=== PATIENT | female | born 1975 | race Caucasian/White ===

== ENCOUNTER → 2020-06-09 13:37 | Outpatient (CLI) | payer OTHER, SELFPAY ==
[2020-06-09 13:03] VITALS: BMI 19.8
[2020-06-09 14:49] LABS: Estradiol 184.9 pg/mL; Follicle Stimulating Hormone 1.8 mIU/mL
[2020-06-13 12:08] LABS: Testosterone, % Free 2.14 % (0.50-2.80); Testosterone, Free 0.47 ng/dL (0.10-0.85); Testosterone, Total 22 ng/dL (8-48)
== END ==
PROVIDERS: PCP Family Medicine; Referring Provider Obstetrics & Gynecology; Visit Provider Obstetrics & Gynecology
DX: N91.1 Secondary amenorrhea (principal)
CPT/HCPCS: 36415; 82627; 82670; 83001; 84402; 84403; 82626

== ENCOUNTER → 2020-06-18 | Outpatient (CLI) | payer OTHER, SELFPAY ==
[2020-06-18 07:43] VITALS: BMI 20.1
--- NOTE | 2020-06-18 08:00 | ASPS_PTH ---
PATIENT: JEFF BUCHANAN LOC: [facility] U#:[id number] AGE/SX: 44/F ROOM: RE06/18/[address]: Dr. Andrew Goddard MD : 1975 BED: DIS: 06/18/2020 SPEC #: [id number] RECD: 06/18/20 10:36 STATUS: DANIELA REAnisha #: [id number] MCKAYLA: 06/18/20 08:[address]: Andrew Goddard DEPT: CYTOLOGY RECD BY: Naina Livingston ENTERED: 06/18/20 11:14 SP TYPE: ASPIRATION OTHR DR: Dr. Virgil Browning MD Tissues: Thyroid gland, NOS Procedures: Cytology Other HEADER OPERATION: Left thyroid FNA PRE-OP DIAGNOSIS: Multiple thyroid nodules TISSUE SUBMITTED: Left thyroid slides x8 DIAGNOSIS CYTOLOGY Left thyroid nodule, FNA (smears): The specimen is nondiagnostic due to lack of adequate number of follicular cells. See comment. SJ:geovani 06/19/2020 COMMENT Correlation with clinical, radiologic findings and appropriate follow up are necessary. Case has been reviewed in consultation with Dr. Hughes who concurs with the above diagnosis. IDC:AM CYTOLOGY STUDY Slides are reviewed. CYTOLOGY GROSS Received are eight smears labeled with the patient's name and designated per the requisition as left thyroid. Submitted for staining. / geovani 06/18/2020 TC: Cannot code CPT: 14539
== END | disposition home or self-care (01) ==
LOC: LABSPEC 10:49
PROVIDERS: PCP Family Medicine; Visit Provider Surgery
DX: E04.2 Nontoxic multinodular goiter (principal)
CPT/HCPCS: 88161

== ENCOUNTER → 2020-07-23 11:17 | Outpatient (CLI) | payer OTHER, SELFPAY ==
[2020-06-09 13:03] VITALS: BMI 19.8
[2020-06-18 07:43] VITALS: BMI 20.1
--- NOTE | 2020-07-23 11:18 | US_ITS ---
STUDY: ULTRASOUND OF THE FEMALE PELVIS - COMPLETE REASON FOR EXAM: Female, 44 years old. Secondary amenorrhea LMP: 06/12/2020. Left ovarian cyst. TECHNIQUE: Transabdominal and Transvaginal TECHNICAL QUALITY: Adequate. COMPARISON: None. FINDINGS: The uterus is anteverted and is in a midline position. The uterus measures 8.1 cm x 4.8 cm x 3.9 cm. There is a Nabothian cyst of the cervix. The endometrium measures 3.4 mm in thickness, and is hyperechoic. There is no demonstrated endometrial mass. The myometrium is of heterogeneous echotexture. This is suggestive of a fibroid change of the known focal fibroid is seen. I.U.D. - The patient does not have an I.U.D. The right ovary is visualized. The right ovary measures 2.8 cm x 4.87 x 3.9 cm. There is no right ovarian cyst or ovarian mass. There is no visualized right adnexal mass or complex lesion. There is normal arterial and normal venous vascularity. The left ovary is visualized. The left ovary is enlarged and measures 8.1 cm x 4.4 cm x 3.4 cm. There are 2 adjacent cysts within the ovary. The largest measures 4.8 sign of by 3.7 cm x 3.1 cm. There is no visualized left adnexal mass or complex lesion. There is normal arterial and normal venous vascularity. There is no fluid in the cul-de-sac. The pre void volume of the bladder was 472 ml. US/Transvaginal Non- IMPRESSION: Heterogeneous appearance of the myometrium suggestive of a fibrotic changes although no focal fibroid is seen. There are 2 left ovarian cysts the larger of which measures 4.8 cm x 3.7 cm x 3.1 cm. Electronically Signed: Lalit Fritz MD at 14:44 EDT , Service support ,
--- NOTE | 2020-07-23 11:18 | US_ITS ---
STUDY: ULTRASOUND OF THE FEMALE PELVIS - COMPLETE REASON FOR EXAM: Female, 44 years old. Secondary amenorrhea LMP: 06/12/2020. Left ovarian cyst. TECHNIQUE: Transabdominal and Transvaginal TECHNICAL QUALITY: Adequate. COMPARISON: None. FINDINGS: The uterus is anteverted and is in a midline position. The uterus measures 8.1 cm x 4.8 cm x 3.9 cm. There is a Nabothian cyst of the cervix. The endometrium measures 3.4 mm in thickness, and is hyperechoic. There is no demonstrated endometrial mass. The myometrium is of heterogeneous echotexture. This is suggestive of a fibroid change of the known focal fibroid is seen. I.U.D. - The patient does not have an I.U.D. The right ovary is visualized. The right ovary measures 2.8 cm x 4.87 x 3.9 cm. There is no right ovarian cyst or ovarian mass. There is no visualized right adnexal mass or complex lesion. There is normal arterial and normal venous vascularity. The left ovary is visualized. The left ovary is enlarged and measures 8.1 cm x 4.4 cm x 3.4 cm. There are 2 adjacent cysts within the ovary. The largest measures 4.8 sign of by 3.7 cm x 3.1 cm. There is no visualized left adnexal mass or complex lesion. There is normal arterial and normal venous vascularity. There is no fluid in the cul-de-sac. The pre void volume of the bladder was 472 ml. US/Pelvic (Non ) IMPRESSION: Heterogeneous appearance of the myometrium suggestive of a fibrotic changes although no focal fibroid is seen. There are 2 left ovarian cysts the larger of which measures 4.8 cm x 3.7 cm x 3.1 cm. Electronically Signed: Lalit Fritz MD at 14:44 EDT , Service support ,
== END ==
PROVIDERS: PCP Family Medicine; Referring Provider Obstetrics & Gynecology; Visit Provider Obstetrics & Gynecology
DX: N91.1 Secondary amenorrhea (principal)
CPT/HCPCS: 76830; 76856

== ENCOUNTER 2020-07-31 08:29 | Day surgery (SDC) | payer OTHER, SELFPAY ==
[2020-06-18 07:43] VITALS: BMI 20.1
[2020-07-24 08:17] VITALS: BMI 20.2
[2020-07-31] VITALS (7 sets, daily range): BP systolic 101–126; BP diastolic 66–80; PULSE 61–82; RESP 18; TEMP 36.8–37; O2SAT 99–100; BMI 19.9
--- NOTE | 2020-07-31 09:03 | PCM.HP.BLA ---
Problem List (1) LLQ pain Status: Acute Comment: ovarian cyst large enough on fu imaging to cause pain, recommend LSO and Right salpingectomy History and Physical Date of Admission: 07/31/20 Intake Visit Reasons: THYROID NODULE Chief Complaint: multiple thyroid nodules Modeling Teacher Required: No Is patient in pain?: No Allergies aspirin Allergy (Intermediate, Verified 06/18/20 07:44) Swelling codeine Allergy (Intermediate, Verified 06/18/20 07:44) Nausea Medications lansoprazole 30 mg capsule,delayed release 30 mg PO DAILY 06/09/20 [History Confirmed 06/18/20] medroxyprogesterone 10 mg tablet 10 mg PO QDAY #10 tab 06/09/20 [Rx Confirmed 06/18/20] spironolactone 25 mg tablet 25 mg PO BID 06/09/20 [History Confirmed 06/18/20] PFSH Medical History H/O renal calculi (Acute) Hyperthyroidism (Acute) Multiple thyroid nodules (Acute) Surgical History H/O tubal ligation (Acute) History of cholecystectomy (Acute) Family History Mother Lymphoma Leukemia Grandfather Diabetes Esophageal cancer Social History (Updated 06/18/20 @ 08:[address] Andrew Goddard MD) household members: children number of children: 1 current occupational status: employed current occupation: [employer] history of recent travel: No sexually active: No Smoking Status: Never smoker alcohol intake: current alcohol intake frequency: a few times a month substance use type: does not use frequency: daily seatbelt use: always do you feel safe at home: Yes additional social history: single HPI HPI HPI: JEFF BUCHANAN, is a 44 F who presents to the office today for consultation regarding diagnosis hyperthyroidism and bilateral thyroid nodules. Patient is a healthy 44-year-old female. There is a family history however of lymphoma in her mother who from that. The patient has not noticed any activity level changes but has been having some left lower quadrant abdominal pain. She saw her primary care physician Dr. Virgil Browning and had laboratory obtained which by patient report was consistent with hyperthyroidism. The patient was then referred to financial recruiter Dr. Shelley Saab and a thyroid ultrasound was performed. Results as noted below. This was obtained at [facility]. The patient also has been referred to see Dr. Valentina Hassan because of left lower quadrant abdominal pain and what sounds like abnormal left ovarian cyst and thickening of the endometrium. However Dr. Valentina Hassan is not clear that this is correlating with the patient's nonspecific left lower quadrant abdominal pain. The patient additionally has an aunt who has had colon polyp problems. Thyroid ultrasound performed at [facility] in [facility] on June 05, 2020 suggested: Right lobe measuring 4.1 x 1.4 x 1.3 cm with the largest 2 nodules measuring 1.1 and 1.2 cm respectively Left thyroid lobe measured 4 x 1.9 x 1.4 cm with the largest 2 nodules measuring 1 and 1.5 cm respectively HPI HPI HPI: JEFF BUCHANAN, is a 44 F who presents to the office today for ROS General General: No weight change, appetite, fatigue, colon cancer, breast cancer or weakness HEENT HEENT: No difficulty swallowing, eye injury, eye surgery, swollen glands or hoarseness Endo Endocrine: No thyroid disease, diabetes mellitus, thyroid cancer, Hair loss, heat intolerance or cold intolerance Skin Skin: No rash or changing moles Breast Breast: No left breast lump, right breast lump, nipple discharge, breast pain, abnormal mammogram, abnormal US or breast enlargement Musc Musculoskeletal: No back problems, arthritis, rheumatoid arthritis, gout or joint pain Cardio Cardiovascular: No murmur, pacemaker, heart disease, atrial fibrillation, high blood pressure, heart attack, heart stent, palpitations, shortness of breat with exertion or chest pain Psych Psychiatric: No depression, anxiety or hearing voices Resp Respiratory: No shortness of breath, No sleep apnea, No cough, No COPD, No asthma, No emphysema, No wheezing Gastro Gastrointestinal: Yes abdominal pain, No nausea or vomiting, No diarrhea, No constipation, No blood in stool, Yes acid reflux, Yes hemorrhoids, No ulcers, No gallbladder problem, No black,tarry stools Jose Hematologic: No blood thinners, No blood disorders, No bleeding, No anemia, No blood clots Neuro Neurologic: No system reviewed and no additional complaints, except as docu, No as per HPI, No abnormal walking, No abnormal hearing, No abnormal movements, No abnormal speech, No behavioral changes, No burning sensations, No confusion, No seizure-like activity, No unsteadiness, No dizziness, No localized weakness, No frequent falls, No headache(s), No lack of coordination, No loss of vision, No memory loss, No numbness, No other visual disturbances, No radiating pain, No restless legs, No sensory deficit, No fainting, No tingling, No tremor(s), No weakness, No other Exam Const General: cooperative, healthy appearing, comfortable, no acute distress Nutritional Appearance: underweight HENMT Head: normal to inspection Eyes General: appearance normal, both eyes and all related structures Neck Other: Supple, very long, nontender, thyroid is easily palpable and moves with swallowing, slightly firm bilaterally Chest Breast Palpation: No nipple discharge Resp Effort & Inspection: normal respiratory effort Auscultation: clear to auscultation bilaterally Cardio Rate: regular rate Rhythm: regular rhythm Heart Sounds: no murmurs Office Procedures Fine Needle Aspiration Provider Documentation Details: Procedure note Ultrasound-guided fine-needle aspiration lower pole left thyroid nodule Timeout informed consent was obtained. The patient significantly room placed on the table. The neck was prepped with Betadine. Ultrasound was performed. Careful inspection of the right lobe was performed. There is diffuse granularity of the thyroid however despite effort I was not able to cleanly identify a nodule that I thought could be consistently localized to perform a biopsy. Upon inspection on the left there was a nodule lower pole left that remained consistent. Under ultrasound guidance injected 1% lidocaine. A total of 1 cc was used. Then I used initially a 25-gauge needle with rapid [id number] motion under ultrasound guidance to sample this left lower pole nodule. I switched out to a 23-gauge needle. A total of 4 separate passes were performed. Specimen was smeared out on slides and treated with fixative. She tolerated procedure very well. Slides are sent for cytology no apparent complication with minimal blood loss. Andrew Goddard M.D., F.A.C.S. Alert Shae Alert Billing: Yes FNA 51345 Thyroid Procedure Time Out Time Out Informed consent given: Yes Consent signed: Yes Time out checklist: patient, procedure, site marked/identified, positioning of patient, supplies available, allergies confirmed, team agrees on procedure Time out staff in room: Yes Time out verified: Yes Time out date: 06/18/20 Time out time: 07:46 Assessment & Plan Problems 1. Thyroid nodule E04.1 2. Hyperthyroidism E05.90 3. LLQ pain R10.32 Plan I think it is very reasonable to pursue an attempted a thyroid fine-needle aspiration for cytology and to assess and hopefully exclude the possibility of thyroid lymphoma. Although that would be unlikely patient states that many family members have had malignancy of a variety of issues. No apparent thyroid cancer. Regarding her left lower quadrant abdominal pain. As this is not felt to be gynecologic in origin I have offered her a colonoscopy with possible biopsy or polypectomy as indicated. She has had an opportunity ask and have questions answered. She concurs. We proceeded with the ultrasound FNA. I could not distinctly see a right thyroid nodule but was able to see a little pole nodule on the left. Hopefully that was successfully fine-needle aspirated today. The patient will be notified of cytology results. She tells me that she has ongoing endocrinology visitation as well. Copy: Dr. Virgil Browning and Dr. Shelley Saab and Dr. Valentina Goddard M.D., F.A.C.S. Orders Orders: Fine Needle Aspiration Today E04.1 Coding Level of Care Code Attention Die Maker Diagnoses Thyroid nodule E04.1 Hyperthyroidism E05.90 LLQ pain R10.32 Additional Codes FNA - Fine Needle Aspiration: 54563 Thyroid (95344) Left lower quadrant abdominal pain. Family history of colon polyps. Plan to proceed with a colonoscopy with possible biopsy or polypectomy as indicated. The patient is aware of technique, benefit, risk and alternatives. We will proceed as noted. Andrew Goddard M.D., F.A.C.S. Procedure Criteria Procedure Type: Elective COVID Risk Discussion: The surgeon/proceduralist and patient have discussed in detail the risk of exposure to and/or potential harm posed by the COVID-19 virus with having a surgery/procedure at this time versus the risk of delaying the surgery/procedure. It is not possible to know either the risk of delaying the surgery or procedure or chance of getting an infection with perfect accuracy, but a joint decision was made between the patient and the surgeon/proceduralist to proceed at this time with the scheduled surgery/procedure as indicated on the consent form.
[2020-07-31] MEDS: Lactated Ringers 1,000 ML 100 ML IV (09:20)
--- NOTE | 2020-07-31 10:26 | OP.COLON_ITS ---
Patient Name: Lucretia Reyes Procedure Date: 07/31/2020 9:54 AM Date of : 1975 Age: 44 Procedure: Colonoscopy Indications: Abdominal pain in the left lower quadrant Providers: Andrew Goddard MD Referring MD: Andrew Goddard MD Medicines: See the Anesthesia note for documentation of the administered medications Patient Profile: Last Colonoscopy: none. The patient's first colonoscopy is today. Complications: No immediate complications. Procedure: Pre-Anesthesia Assessment: - Prior to the procedure, a History and Physical was performed, and patient medications and allergies were reviewed. The patient's tolerance of previous anesthesia was also reviewed. The risks and benefits of the procedure and the sedation options and risks were discussed with the patient. All questions were answered, and informed consent was obtained. Prior Anticoagulants: The patient has taken no previous anticoagulant or antiplatelet agents. ASA Grade Assessment: I - A normal, healthy patient. After reviewing the risks and benefits, the patient was deemed in satisfactory condition to undergo the procedure. After I obtained informed consent, the scope was passed under direct vision. Throughout the procedure, the patient's blood pressure, pulse, and oxygen saturations were monitored continuously. The colonoscope was introduced through the anus and advanced to the cecum, identified by appendiceal orifice and ileocecal valve. The colonoscopy was somewhat difficult due to a tortuous colon. Successful completion of the procedure was aided by applying abdominal pressure. The patient tolerated the procedure well. The quality of the bowel preparation was good. The ileocecal valve and the appendiceal orifice were photographed. Scope In: 10:03:24 AM Scope Withdrawal Time 0 hours 5 minutes 29 seconds Scope Out: 10:20:07 AM Total Procedure Duration Time 0 hours 16 minutes 43 seconds Findings: The perianal and digital rectal examinations were normal. Very minimal hemorrhoids. The left colon was moderately tortuous. The exam was otherwise without abnormality. Impression: - Tortuous colon. - The examination was otherwise normal. - No specimens collected. Recommendation: - Discharge patient to home. - Resume previous diet. - Continue present medications. - Repeat colonoscopy in 10 years for screening purposes. Procedure Code(s): --- Professional --- 67935, Colonoscopy, flexible; diagnostic, including collection of specimen(s) by brushing or washing, when performed (separate procedure) Diagnosis Code(s): --- Professional --- R10.32, Left lower quadrant pain Q43.8, Other specified congenital malformations of intestine CPT copyright 2017 [employer]. All rights reserved. The codes documented in this report are preliminary and upon hand polisher review may be revised to meet current compliance requirements. Andrew Goddard MD 07/31/2020 10:25:43 AM This report has been signed electronically. Number of Addenda: 0 Note Initiated On: 07/31/2020 9:54 AM
--- NOTE | 2020-07-31 10:26 | OP.CCLET_ITS ---
07/31/2020 Virgil Browning Md Re : Colonoscopy procedure for Lucretia Browning This procedure was performed on Friday, July 31, 2020. My impressions and recommendations are as follows: Impressions : - Tortuous colon. - The examination was otherwise normal. - No specimens collected. Recommendations : - Discharge patient to home. - Resume previous diet. - Continue present medications. - Repeat colonoscopy in 10 years for screening purposes. My findings are described in the full procedure note, which is enclosed. If I can be of further assistance, please feel free to contact me at Doctor phone number(s): Work: . Sincerely, Andrew Goddard MD 07/31/2020 10:25:43 AM This report has been signed electronically.
== END 2020-07-31 11:24 | disposition home or self-care (01) ==
LOC: EN 08:38 → AC 08:43
PROVIDERS: PCP Family Medicine; Referring Provider Surgery; Visit Provider Surgery
PROC: 0DJD8ZZ Inspection of Lower Intestinal Tract, Via Natural or Artificial Opening Endoscopic (ICD-10-PCS; CPT 45378; principal; 2020-07-31 09:40)
DX: R10.32 Left lower quadrant pain (principal); Q43.8 Other specified congenital malformations of intestine; N83.202 Unspecified ovarian cyst, left side; K21.9 Gastro-esophageal reflux disease without esophagitis; Z90.49 Acquired absence of other specified parts of digestive tract
CPT/HCPCS: 45378; 87426; C9803; J7120; J2405

== ENCOUNTER 2020-08-11 10:43 | Day surgery (SDC) | payer OTHER, SELFPAY ==
[2020-07-24 08:17] VITALS: BMI 20.2
[2020-07-31 09:10] VITALS: BMI 19.9
[2020-08-10 11:19] LABS: Absolute Neutrophil Count 4.6 X10^3/uL (2.0-7.7); Basophil# 0.04 X10^3/uL; Basophil% 0.6 % (0-1); Eosinophil# 0.06 X10^3/uL; Eosinophils% 0.8 % (0-5); Hemoglobin 13.6 g/dL (12.0-15.0); Lymphocyte % 28.1 % (19-41); Mean Corp Hgb Conc 32.4 g/dL (32-36); Mean Corpuscular Hgb 30.5 pg (27.0-32.0); Mean Corpuscular Volume 94.2 fL (81-99); Mean Platelet Vol. 10.5 fl (6.2-12.0); Monocyte# 0.37 X10^3/uL; Monocyte% 5.2 % (0-10); NRBC Flagged by Analyzer 0 % (0-5); Neutrophil # 4.62 X10^3/uL (2.7-7.7); Platelet Count 253 K/mm3 (150-450); RBC Distribution Width SD 48.7 fl (35.1-43.9); Red Blood Count 4.46 M/mm3 (4.2-5.4); White Blood Count 7.1 K/mm3 (4.4-11.0)
[2020-08-11] VITALS (8 sets, daily range): BP systolic 104–121; BP diastolic 66–81; PULSE 61–81; RESP 16; TEMP 36.3–36.7; O2SAT 97–100
[2020-08-11 11:16] LABS: Internal QC Validated? YES +Cl - CLEAR BKGD
[2020-08-11 11:17] LABS: Pregnancy, Urine Negative Negative
[2020-08-11] MEDS: Lactated Ringers 1,000 ML 100 ML IV ×2 (11:21→14:49)
--- NOTE | 2020-08-11 12:18 | HP.PCM_ITS ---
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 Is patient in pain?: No Allergies aspirin Allergy (Intermediate, Verified 07/24/20 08:19) Swelling codeine Allergy (Intermediate, Verified 07/24/20 08:19) Nausea Medications lansoprazole 30 mg capsule,delayed release 30 mg PO DAILY 06/09/20 [History Confirmed 07/24/20] medroxyprogesterone 10 mg tablet 10 mg PO QDAY #10 tab 06/09/20 [Rx Confirmed 07/24/20] spironolactone 25 mg tablet 25 mg PO BID 06/09/20 [History Confirmed 07/24/20] Is last menstrual period known: No Post menopausal: No Patient : No : No PFSH Medical History H/O renal calculi (Acute) Hyperthyroidism (Acute) Multiple thyroid nodules (Acute) Surgical History H/O tubal ligation (Acute) History of cholecystectomy (Acute) Family History Mother Lymphoma Leukemia Grandfather Diabetes Esophageal cancer Social History (Updated 07/24/20 @ 08:[address] Valentina Hassan MD) household members: children number of children: 1 current occupational status: employed current occupation: [employer] history of recent travel: No sexually active: No Smoking Status: Never smoker alcohol intake: current alcohol intake frequency: a few times a month substance use type: does not use frequency: daily seatbelt use: always do you feel safe at home: Yes additional social history: single HPI FU US results: Details: JEFF BUCHANAN is a 44 year old who presents for follow up of ovarian cyst. she has persisten tLLQ pain and is having a colonoscopy next week. She had a spontaneous menses this past week and she attributes this to having her thyroid meds changed. she had her thyroid biopsied and the tissue came back inadequate. she denies any severe unrelenting pelvic pain, only intermittent. Female Reproductive History Menopausal Symptoms: Yes hot flashes, Yes night sweats Pregancy History 2 Elective abortions Hx Para 1 Spontaneous abortions Hx # Term Pregnancies Ectopic pregnancies Hx # Pregnancies Multiple births # of living children 1 Past Pregnancies Del. Date Name GA/Weeks Outcome Route Bth Weight Gen Labor Lgth Anesthesia Del Locatn Provider FOB Unknown Arnaud 2004 ROS Const Constitutional: Reports night sweats ENT ENT: Reports system reviewed and no additional complaints, except as docu Cardio Card: Denies chest pain Resp Resp: Denies cough or dyspnea GI GI: Reports as per HPI; denies constipation, nausea or vomiting : Reports hot flashes; denies nipple discharge Musc Musc: Denies joint pain, back pain or muscle weakness Skin Skin/Breast: Denies hair loss, change in hair, dry skin, breast lump, breast pain, breast skin changes or nipple discharge Neuro Neuro: Reports system reviewed and no additional complaints, except as docu Psych Psych: Reports system reviewed and no additional complaints, except as docu Endo Endo: Denies cold intolerance, excessive sweating, heat intolerance or increased thirst Jose/Lymph Hematologic/Lymphatic: Denies easy bleeding, Denies easy bruising, Denies enlarged lymph nodes Exam Const General: cooperative, healthy appearing, comfortable, no acute distress, well developed Orientation: alert [facility] Head: normal to inspection, normocephalic Ears: hearing grossly normal bilaterally, external ears normal Nose: external nose normal, nares normal Face and sinus: normal facial exam Neck Neck: normal visual inspection, no lymphadenopathy Thyroid: thyroid normal Chest Chest palpation & inspection: normal inspection of the chest Resp Effort & Inspection: normal respiratory effort Auscultation: clear to auscultation bilaterally Cardio Rate: regular rate Rhythm: regular rhythm Heart Sounds: S1 normal, S2 normal GI Inspection: normal to inspection, non-distended Palpation: soft, no hepatosplenomegaly Musc Other: gross motor intact no deficits, full bilateral strength Skin General: no rashes or lesions noted Neuro General: alert, awake, moves all extremities, no focal motor deficits Motor: muscle tone normal throughout Extrem General: normal to inspection, no pedal edema Psych Appearance: grossly normal Mental Status: mental status grossly normal Affect: normal affect Speech and Movement: speech and movement normal Assessment & Plan Problems 1. Ovarian cyst N83.209 persistent and large enough to cause pain 2. LLQ pain R10.32 ovarian cyst large enough on fu imaging to cause pain, recommend LSO and Right salpingectomy 3. Secondary amenorrhea N91.1 recommend lab evaluation, provera challenge. possibly secondary to hyperthyroidism. plan fu after repeat us. 4. Hyperthyroidism E05.90 s/p endocrine consult 5. Thyroid nodule E04.1 s/p endocrine consult, s/p surgery evaluation Plan After discussing the patient's diagnosis and treatment plan options, patient wishes to proceed with surgical management. I have discussed with the patient the risks, benefits, and alternatives of the procedure which include but are not limited to risks of anesthesia, bleeding, infection, possible damage to bowel, bladder, or surrounding vasculature which could lead to additional surgery to evaluate any complications. Patient agrees to procedure and wishes to proceed. ACOG/uptodate references given for additional information regarding procedure. Coding Level of Care Code Off vis,est,level 4 Diagnoses Ovarian cyst N83.209 LLQ pain R10.32 Secondary amenorrhea N91.1 Hyperthyroidism E05.90 Thyroid nodule E04.1 UPDATE- I have seen the patient and performed any clinically relevant updates to the history and physical exam. Valentina Hassan MD Assessment & Plan Assessment/Plan (1) Ovarian cyst: Status: Acute Code(s): N83.209 - Unspecified ovarian cyst, unspecified side (2) LLQ pain: Status: Acute Code(s): R10.32 - Left lower quadrant pain
--- NOTE | 2020-08-11 12:35 | OV_PTH ---
PATIENT: JEFF BUCHANAN LOC: [facility] [place] U#:[id number] AGE/SX: 44/F ROOM: RE08/11/[address]: Dr. Valentina Hassan MD : 1975 BED: DIS: 08/11/2020 SPEC #: [id number] RECD: 08/11/20 13:25 STATUS: DANIELA MERCEDES #: [id number] MCKAYLA: 08/11/20 12:[address]: Valentina Hassan DEPT: SURGICAL PATHOLOGY RECD BY: Dewey Collazo ENTERED: 08/12/20 09:26 SP TYPE: OVARY OTHR DR: Dr. Virgil Browning MD Tissues: Left ovary Procedures: Surgery Specimen Level IV HEADER OPERATION: Laparoscopic salpingo-oophorectomy left, lap salpingectomy right PRE-OP DIAGNOSIS: Ovarian cyst, LLQ pain, secondary amenorrhea TISSUE SUBMITTED: Left ovary and bilateral fallopian tubes MICROSCOPIC DIAGNOSIS Left ovary and bilateral fallopian tubes, left salpingo-oophorectomy and right salpingectomy: Left ovary ? physiologic follicular cysts. Bilateral fallopian tubes - no pathologic diagnosis. Bilateral paratubal cysts. SJ:rg 08/13/2020 MICROSCOPIC DESCRIPTION Slides are reviewed. GROSS DESCRIPTION Received in fixative is one container labeled with the patient's name and designated left ovary and bilateral fallopian tubes. The specimen consists of a fallopian tube and ovary identified as left and a separate fallopian tube identified as right. The right fallopian tube measures 4.5 cm in length and 0.5 cm in diameter. The fimbrial end is identified. Sections reveal unremarkable cut surfaces. The left fallopian tube measures 4 cm in length and 0.5 cm in diameter. The fimbrial end is identified. Sections reveal unremarkable cut surfaces. No tubo-ovarian adhesions are noted. A paratubal cyst is noted measuring 3.5 x 2.5 x 2 cm. A smaller paratubal cyst attached to the larger cyst is also present measuring 1 cm in greatest dimension. The outer surface of the cyst is inked black. No papillations are identified. The contains clear fluid. The soft to cystic left ovary measures 5 x 3 x 2.5 cm. Sections reveal multiple cysts filled with clear fluid. The largest cyst measures 2 cm in greatest dimension. Consumer Product Advisor sections are submitted in five cassettes as follows: 1 ? right fallopian tube, 2 ? left fallopian tube and smaller paratubal cysts, 3 ? larger paratubal cyst and left ovary, 4 & 5 ? left ovary. / SABA:geovani 08/12/20 TC:5 CPT: 64272 x2
[2020-08-11] MEDS: Bupivacaine 0.25% 30 ML Vial (12:49)
--- NOTE | 2020-08-11 13:13 | PCM.OPRPT ---
Problems Associated Problem List Diagnoses (1) LLQ pain: (2) Ovarian cyst: Report of Operation Pre-Operative Diagnosis: see problem list Post-Operative Diagnosis: same Surgery/Procedure Performed:: laparoscopic bilateral salpingectomy left oophorectomy Description of Surgical Findings:: left ovary enlarged, nl right ovary nl upper abdomen stave and bolt equalizer: Alonso Eller Type of Anesthesia: General and Local Special Medications: none Specimen's removed: tubes and left ovary Drains: none Estimated Blood Loss (mL): 50 Fluids Replaced: crystalloid Description of Procedure: Patient was taken in the operating room and was placed under general anesthesia was prepped and draped in normal sterile fashion in the dorsal lithotomy position. Bladder was drained of clear urine and SCDs were on preoperatively. Uterus was sounded and a uterine manipulator was placed after dilating. Attention was then paid to the abdominal portion of the procedure and the umbilicus was elevated with towel clamps and injected with Marcaine and after a 12 mm incision was made and the Veress needle was entered into the abdomen confirmed to be intra-abdominal with a low opening pressure of less than 5 mmHg. Abdomen was insufflated with CO2 gas and a 12 mm optical trocar was placed under direct visualization. A right and left lower quadrant 5 mm ports were placed under direct visualization. Uterus was well visualized and bilateral fallopian tubes and ovaries were identified and the left infundibulopelvic ligament was transected across using the LigaSure device followed by transecting across the mesosalpinx to the attachment to the uterine corpus bilaterally the tubes and left ovary was removed without complication. Excellent hemostasis was noted. Specimens were removed through the umbilical port site through a bag without any intra-abdominal spillage of contents. The fascial incision was closed using the Lawrence Watkins and an 0 Vicryl. Liver and upper abdomen were visualized notably within normal limits and no other gross abnormalities were seen in the abdomen. All instruments removed from the abdomen after gas was desufflated. Port sites were closed with 3-0 Monocryl Steri's and op sites were applied. All instruments removed from the vagina and patient was awoken and taken recovery in stable condition. Grafts/Implants Used: none Complications none Admit VTE Documentation VTE Present on Admission: No VTE Mechan Device Prophylaxis: SCD's Procedures Urinary/Genital 52xxx-59xxx: 86378 Laproscopic BS/O
--- NOTE | 2020-08-11 14:38 | DCINST_ITS ---
Discharge Instructions Outpatient Procedure Reason For Visit: LSO, R LAP SALPING Diet Discharge Diet: No restrictions Activity Discharge Activity: Return to Normal Activity, May Not Drive (for 2 weeks or while taking narcotic pain meds.), May Shower and May Take a Tub Bath (in 7 days) May resume sexual activity in: 1 week Weight Bearing Status: Full weight bearing Dressing / Incision Call your doctor if your incision/area has: Continuous Slow Oozing, Sudden Increased Bleeding, Increased Pain/ Swelling, Increased Redness and Foul Smelling Discharge Call your doctor if you observe: Fever of 101 or Higher, Using more than one pad per hour, Shortness of breath, Chest pain and Uncontrolled pain Suture Line Care: Avoid Pulling/Pushing and Avoid Pinching/Bending Remove Dressing in: 1 week (if present) Cleanse incision/area with: Soap & Water and Keep Dressing Clean & Dry Follow Up Care When: Call to make an appointment with your doctor for a fu/incision check in 1- 2 weeks. Test Results: Test results from this visit will be discussed in further detail at your follow-up appointment, if applicable. Discharge Plan Admission Primary Reason for Your Visit: laparoscopic left ovary and both tubes removed Attending Provider: Valentina Hassan Primary Care Provider: Virgil Browning Instructions Patient Instructions: Common Laparoscopic Procedures Discharge Orders/Prescriptions Prescriptions: New oxycodone-acetaminophen [Endocet] 5-325 mg tablet 1 tab PO Q4H PRN (Reason: pain) 7 Days Qty: 20 RF: 0 No Action lansoprazole 30 mg capsule,delayed release(DR/EC) 30 mg PO DAILY RF: 0 spironolactone 25 mg tablet 25 mg PO BID RF: 0 Referrals: Virgil Browning MD [Primary Care Provider] - Disposition Disposition (needs filled in before D/C Order can be placed): Home, self care
== END 2020-08-11 16:42 | disposition home or self-care (01) ==
LOC: SDC 10:43 → AC 10:44
PROVIDERS: PCP Family Medicine; Referring Provider Obstetrics & Gynecology; Visit Provider Obstetrics & Gynecology
PROC: (CPT 58661; principal; 2020-08-11 12:20)
DX: N83.02 Follicular cyst of left ovary (principal); N83.8 Other noninflammatory disorders of ovary, fallopian tube and broad ligament; N91.1 Secondary amenorrhea; Z87.442 Personal history of urinary calculi
CPT/HCPCS: 00840; 58661; 36415; 81025; 85025; 86850; 86900; 86901; 87426; 88305; C9803; J7120; J2405

== ENCOUNTER → 2021-02-23 08:07 | Outpatient (CLI) | payer OTHER, SELFPAY ==
--- NOTE | 2021-02-23 08:22 | RAD_ITS ---
STUDY: AIR CONTRAST UPPER GI SERIES and esophagram. REASON FOR EXAM: Female, 45 years old. K21.9 - Gastro-esophageal reflux disease without esophagitis FLUOROSCOPY TIME (if supplied): (48 seconds) minutes/seconds. 45 images were obtained. TECHNIQUE: SINGLE CONTRAST AND AIR CONTRAST FLUOROSCOPIC IMAGES. COMPARISON: None. FINDINGS: The cervical esophagus demonstrates normal motility without aspiration. There is no stricture or extrinsic mass effect. No intraluminal polypoid mass is identified. The thoracic esophagus distends well without stricture or mucosal fold thickening. No mucosal ulcerations are identified. There is no extrinsic mass effect. There are no diverticula. No hiatal hernia or gastroesophageal reflux was identified. The patient ingested a 12 mm tablet of barium without any difficulty. The stomach distends well without mucosal fold thickening or mucosal ulceration. There is no intraluminal mass. The duodenal bulb is freely distensible without deformity or ulceration. The duodenal sweep is normal in position and caliber. RAD/Upper GI w/BA Swallow IMPRESSION: Normal air-contrast upper GI series and esophagram. Electronically Signed: Lalit Fritz MD at 9:15 EST , Service support ,
== END ==
PROVIDERS: PCP Family Medicine; Referring Provider Surgery; Visit Provider Surgery
DX: K21.9 Gastro-esophageal reflux disease without esophagitis (principal)
CPT/HCPCS: 74246

== ENCOUNTER 2021-02-26 06:50 | Day surgery (SDC) | payer OTHER, SELFPAY ==
[2021-02-26] VITALS (13 sets, daily range): BP systolic 93–117; BP diastolic 57–79; PULSE 67–85; RESP 16; TEMP 36.2–36.7; O2SAT 92–100; BMI 20.5
--- NOTE | 2021-02-26 06:53 | PCM.HP.BLA ---
History and Physical Date of Admission: 02/26/21 Intake Visit Reasons: GERD, EGD Chief Complaint: gerd and hiatal hernia Emergency Medical Services Coordinator Required: No Is patient in pain?: Yes Allergies aspirin Allergy (Intermediate, Verified 02/16/21 14:39) Swelling codeine Allergy (Intermediate, Verified 02/16/21 14:39) Nausea Medications lansoprazole 30 mg capsule,delayed release 30 mg PO DAILY 06/09/20 [History Confirmed 08/24/20] spironolactone 25 mg tablet 25 mg PO BID 06/09/20 [History Confirmed 08/24/20] famotidine 40 mg tablet 40 mg PO DAILY 02/16/21 [History Confirmed 02/16/21] sucralfate 1 gram tablet 1 g PO QACHS 02/16/21 [History Confirmed 02/16/21] PFSH Medical History H/O renal calculi Heartburn Hx of hiatal hernia Hyperthyroidism Multiple thyroid nodules Wears contact lenses Wears glasses Surgical History H/O tubal ligation History of cholecystectomy History of left salpingo-oophorectomy History of salpingectomy Hx of colonoscopy Family History Mother Lymphoma Leukemia Grandfather Diabetes Esophageal cancer Social History household members: children number of children: 1 current occupational status: employed current occupation: [employer] history of recent travel: No sexually active: No Smoking Status: Never smoker alcohol intake: current alcohol intake frequency: a few times a month substance use type: does not use frequency: daily seatbelt use: always do you feel safe at home: Yes additional social history: single HPI HPI HPI: JEFF BUCHANAN, is a 45 F who presents to the office today for surgical consultation regarding gastroesophageal reflux disease. The patient is referred by Dr. Virgil Browning and a written copy my surgical consult recommendations will return to him. The per patient is currently on famotidine 40 mg daily and sucralfate 1 g 4 times daily. Her medication list also suggest that she is on lansoprazole 30 mg daily the patient is concerned because she is not able to eat normal foods. She has had a previous history of a laparoscopic cholecystectomy as well as a laparoscopic oophorectomy and tubal ligation. She has had previous remote esophagogastroduodenoscopy's and a colonoscopy just earlier this year. She complains of trying to eat acidic food causing her trouble. The area also was a problem. She has been avoiding oils. She feels that she has significant reflux problems. ROS General General: No weight change, appetite, fatigue, colon cancer, breast cancer or weakness HEENT HEENT: No difficulty swallowing, eye injury, eye surgery, swollen glands or hoarseness Endo Endocrine: No thyroid disease, diabetes mellitus, thyroid cancer, Hair loss, heat intolerance or cold intolerance Skin Skin: No rash or changing moles Breast Breast: No left breast lump, right breast lump, nipple discharge, breast pain, abnormal mammogram, abnormal US or breast enlargement Musc Musculoskeletal: No back problems, arthritis, rheumatoid arthritis, gout or joint pain Cardio Cardiovascular: No murmur, pacemaker, heart disease, atrial fibrillation, high blood pressure, heart attack, heart stent, palpitations, shortness of breat with exertion or chest pain Psych Psychiatric: No depression, anxiety or hearing voices Resp Respiratory: No shortness of breath, No sleep apnea, No cough, No COPD, No asthma, No emphysema and No wheezing Gastro Gastrointestinal: No abdominal pain, No nausea or vomiting, No diarrhea, No constipation, No blood in stool, No acid reflux, No hemorrhoids, No ulcers, No gallbladder problem and No black,tarry stools Jose Hematologic: No blood thinners, No blood disorders, No bleeding, No anemia and No blood clots Neuro Neurologic: No system reviewed and no additional complaints, except as documented, No as per HPI, No abnormal gait, No abnormal hearing, No abnormal movements, No abnormal speech, No behavioral changes, No burning sensations, No confusion, No convulsions, No disequilibrium, No dizziness, No localized weakness, No frequent falls, No headache(s), No lack of coordination, No loss of vision, No memory loss, No numbness, No other visual disturbances, No radicular pain, No restless legs, No sensory deficit, No syncope, No tingling, No tremor(s), No weakness and No other Exam Const General: cooperative, healthy appearing, comfortable and no acute distress Nutritional Appearance: average body habitus Orientation: alert and awake [facility] Head: normal to inspection Eyes General: appearance normal, both eyes and all related structures Chest Chest palpation & inspection: normal inspection of the chest Resp Effort & Inspection: normal respiratory effort Auscultation: clear to auscultation bilaterally Cardio Rate: regular rate Rhythm: regular rhythm GI Palpation: no hepatosplenomegaly Skin General: no rashes or lesions noted Extrem General: no calf tenderness Psych Appearance: grossly normal Judgment: judgment good Assessment and Plan Assessment and Plan (1) GERD (gastroesophageal reflux disease): Status: Acute Qualifiers: Esophagitis presence: esophagitis presence not specified Qualified Code(s): K21.9 - Gastro-esophageal reflux disease without esophagitis Orders: Orders: EGD Today K21.9 Esophageal Manometry Today K21.9 Upper GI w/BA Swallow Today K2.9 Plan - Dr. Andrew Goddard MD: 45-year-old female with intractable reflux disease. I recommend to her an esophagogastroduodenoscopy with possible biopsy. Careful inspection for gastritis or H. pylori or hiatal hernia or stricturing or acidophil esophagitis will be pursued trying to explain the patient's significant discomfort despite being on proton pump inhibitor and H2 [place] and sucralfate. I additionally propose a barium upper GI study to help evaluate anatomy. Finally I propose also esophageal manometry. Subsequently we will have her return in the discuss treatment options. She has had an opportunity to ask and have questions answered. I appreciate the ongoing opportunity of assisting with her surgical care. Copy: Dr. Virgil Goddard M.D., F.A.C.S. I have re-examined the patient. There are no clinical changes since date of exam. Andrew Goddard M.D., F.A.C.S.
[2021-02-26] MEDS: Lactated Ringers 1,000 ML 15 ML IV (06:55)
--- NOTE | 2021-02-26 07:45 | IMM_PTH ---
PATIENT: JEFF BUCHANAN LOC: EN U#:[id number] AGE/SX: 45/F ROOM: RE02/26/[address]: Dr. Andrew Goddard MD : 1975 BED: DIS: 02/26/2021 SPEC #: [id number] RECD: 02/26/21 13:35 STATUS: DANIELA REQ #: [id number] MCKAYLA: 02/26/21 07:[address]: Andrew Goddard DEPT: IMMUNOHISTOCHEMISTRY RECD BY: Ashley Mccartney ENTERED: 02/26/21 13:36 SP TYPE: IMMUNO OTHR DR: Dr. Virgil Browning MD Tissues: B - Stomach, NOS Procedures: H Pylori (initial) PHYSICIAN & INSTITUTION [place] [id number] SPECIMEN INFORMATION: Tissue Source: B ? Antrum biopsy Clinical Info: GERD Specimen Number: [id number] CPT code: 79434 METHODOLOGY: Deparaffinized sections of prefer/formalin-fixed tissue or PAP/DQ stained slides are incubated with monoclonal/polyclonal antibodies/oligonucleotide probes. Localization is made via biotin free immunoperoxidase method. Appropriate controls are performed and reacted as expected. Results on target cell population are indicated in the following table: RESULTS: ANTIBODY / CLONE RESULT Block B H Pylori (polyclonal) negative These tests were developed and their performance characteristics determined by [facility]. They may not have been cleared or approved by the U.S. Food and Drug Administration. The FDA has determined that such clearance or approval is not necessary. INTERPRETATION: B. Antrum biopsy: Negative for Helicobacter pylori organisms. AM:geovani 03/02/2021
--- NOTE | 2021-02-26 07:45 | EGD_PTH ---
PATIENT: JEFF BUCHANAN LOC: EN U#:[id number] AGE/SX: 45/F ROOM: RE02/26/[address]: Dr. Andrew Goddard MD : 1975 BED: DIS: 02/26/2021 SPEC #: [id number] RECD: 02/26/21 10:31 STATUS: DANIELA MERCEDES #: [id number] MCKAYLA: 02/26/21 07:[address]: Andrew Goddard DEPT: SURGICAL PATHOLOGY RECD BY: Naina Livingston ENTERED: 02/26/21 11:50 SP TYPE: EGD BIOPSY OT DR: Dr. Virgil Browning MD Tissues: A - Duodenum, NOS B - Gastric mucous membrane C - Stomach, NOS D - Esophagus, NOS E - Esophagus, NOS Procedures: Special Stain Group II Surgery Specimen Level IV Alcian Blue/PAS (control) HEADER OPERATION: EGD (MOD) PRE-OP DIAGNOSIS: GERD TISSUE SUBMITTED: A ? Duodenum biopsy, B ? Antrum biopsy, C ? Greater curvature polyp biopsy, D ? Distal esophagus biopsy, E ? Mid esophagus biopsy MICROSCOPIC DIAGNOSIS A. Duodenum, biopsy: No pathologic change. B. Gastric antrum, biopsy: Chronic gastritis. See comment. C. Stomach, greater curvature polyp, biopsy: Fundic gland polyp. D. Distal esophagus, biopsy: Gastroesophageal junctional mucosa with mild chronic inflammation. No evidence of goblet cell metaplasia. Se comment. E. Mid esophagus, biopsy: Fragment of benign squamous mucosa. No evidence of inflammation. AM:geovani 03/01/2021 COMMENT B. The results of immunohistochemistry for Helicobacter pylori will be reported separately ([id number]). D. Alcian blue/PAS stain with matched control supports the above diagnosis. MICROSCOPIC DESCRIPTION Slides are reviewed. GROSS DESCRIPTION A - Received in fixative is one container labeled with the patient's name and designated duodenum biopsy. The specimen consists of multiple irregular fragments of light hernandez soft tissue that in aggregate measure 0.6 x 0.3 x 0.1 cm. The specimen is totally submitted in one cassette. B - Received in fixative is one container labeled with the patient's name and designated antrum biopsy. The specimen consists of one irregular fragment of light hernandez soft tissue that measures 0.6 x 0.3 x 0.1 cm. The specimen is totally submitted in one cassette. C - Received in fixative is one container labeled with the patient's name and designated greater curvature polyp. The specimen consists of one irregular fragment of light hernandez soft tissue that measures 0.3 x 0.3 x 0.1 cm. The specimen is totally submitted in one cassette. D - Received in fixative is one container labeled with the patient's name and designated distal esophagus biopsy. The specimen consists of multiple irregular fragments of light hernandez soft tissue that in aggregate measure 1 x 0.3 x 0.1 cm. The specimen is totally submitted in one cassette. E - Received in fixative is one container labeled with the patient's name and designated mid esophagus biopsy. The specimen consists of one irregular fragment of light hernandez soft tissue that measures 0.6 x 0.2 x 0.1 cm. The specimen is totally submitted in one cassette. / AM:geovani 02/26/21 TC:3 CPT: 57788 x5, 67518
[2021-02-26] MEDS: Ondansetron 4 MG/2 ML Vial (07:57)
[2021-02-26] MEDS: Midazolam 5 MG/ML Syringe (07:59)
--- NOTE | 2021-02-26 08:16 | OP.CCLET_ITS ---
02/26/2021 Virgil Browning Md Re : Upper GI endoscopy procedure for Lucretia Gómez Nallely This procedure was performed on Friday, February 26, 2021. My impressions and recommendations are as follows: Impressions : - Z-line variable, 40 cm from the incisors. - Reflux esophagitis. Biopsied. - A few gastric polyps. Resected and retrieved. - Erythematous mucosa in the antrum. Biopsied. - Normal examined duodenum. Biopsied. - Normal middle third of esophagus. Biopsied. Recommendations : - Discharge patient to home. - Resume previous diet. - Continue present medications. - Return to my office in 1 week. Small hiatal hernia, possible bile reflux from duodenum Esophagram normal Manometry pending My findings are described in the full procedure note, which is enclosed. If I can be of further assistance, please feel free to contact me at Doctor phone number(s): Work: . Sincerely, Andrew Goddard MD 02/26/2021 8:15:36 AM This report has been signed electronically.
--- NOTE | 2021-02-26 08:16 | OP.EGD_ITS ---
Patient Name: Lucretia Reyes Procedure Date: 02/26/2021 7:47 AM Date of : 1975 Age: 45 Procedure: Upper GI endoscopy Indications: Heartburn Providers: Andrew Goddard MD Referring MD: Virgil Browning Md Medicines: Midazolam 3 mg IV, Meperidine 75 mg IV, Ondansetron 4 mg IV Complications: No immediate complications. Procedure: Pre-Anesthesia Assessment: - Prior to the procedure, a History and Physical was performed, and patient medications and allergies were reviewed. The patient's tolerance of previous anesthesia was also reviewed. The risks and benefits of the procedure and the sedation options and risks were discussed with the patient. All questions were answered, and informed consent was obtained. Prior Anticoagulants: The patient has taken no previous anticoagulant or antiplatelet agents. ASA Grade Assessment: II - A patient with mild systemic disease. After reviewing the risks and benefits, the patient was deemed in satisfactory condition to undergo the procedure. After obtaining informed consent, the endoscope was passed under direct vision. Throughout the procedure, the patient's blood pressure, pulse, and oxygen saturations were monitored continuously. The Endoscope was introduced through the mouth, and advanced to the second part of duodenum. The upper GI endoscopy was accomplished without difficulty. The patient tolerated the procedure well. Moderate Sedation: Moderate (conscious) sedation was personally administered by the endoscopist. The following parameters were monitored: oxygen saturation, heart rate, blood pressure, and response to care. Total physician intraservice time was 15 minutes. Scope In: 8:01:50 AM Scope Out: 8:08:21 AM Total Procedure Duration Time 0 hours 6 minutes 31 seconds Findings: The Z-line was variable and was found 40 cm from the incisors. Esophagitis with no bleeding was found 40 cm from the incisors. Biopsies were taken with a cold forceps for histology. A few sessile polyps with no bleeding and no stigmata of recent bleeding were found on the greater curvature of the stomach. The polyp was removed with a cold biopsy forceps. Resection and retrieval were complete. Diffuse mildly erythematous mucosa without bleeding was found in the gastric antrum. Biopsies were taken with a cold forceps for histology. The examined duodenum was normal. Biopsies were taken with a cold forceps for histology. The middle third of the esophagus was normal. Biopsies were taken with a cold forceps for histology. A small hiatal hernia was present. Impression: - Z-line variable, 40 cm from the incisors. - Reflux esophagitis. Biopsied. - A few gastric polyps. Resected and retrieved. - Erythematous mucosa in the antrum. Biopsied. - Normal examined duodenum. Biopsied. - Normal middle third of esophagus. Biopsied. Recommendation: - Discharge patient to home. - Resume previous diet. - Continue present medications. - Return to my office in 1 week. Small hiatal hernia, possible bile reflux from duodenum Esophagram normal Manometry pending Procedure Code(s): --- Professional --- 15879, Esophagogastroduodenoscopy, flexible, transoral; with biopsy, single or multiple 68973, 59, Moderate sedation services provided by the same physician or other qualified health acute care surgeon performing the diagnostic or therapeutic service that the sedation supports, requiring the presence of an independent trained observer to assist in the monitoring of the patient's level of consciousness and physiological status; initial 15 minutes of intraservice time, patient age 5 years or older Diagnosis Code(s): --- Professional --- K22.8, Other specified diseases of esophagus K21.0, Gastro-esophageal reflux disease with esophagitis K31.7, Polyp of stomach and duodenum K31.89, Other diseases of stomach and duodenum R12, Heartburn CPT copyright 2017 [employer]. All rights reserved. The codes documented in this report are preliminary and upon client insights consultant review may be revised to meet current compliance requirements. Andrew Goddard MD 02/26/2021 8:15:36 AM This report has been signed electronically. Number of Addenda: 0 Note Initiated On: 02/26/2021 7:47 AM
== END 2021-02-26 09:42 ==
LOC: EN 06:51 → AC 06:51
PROVIDERS: PCP Family Medicine; Referring Provider Family Medicine; Visit Provider Surgery
PROC: (CPT 43239; principal; 2021-02-26 07:40)
DX: K29.50 Unspecified chronic gastritis without bleeding (principal); K21.00 Gastro-esophageal reflux disease with esophagitis, without bleeding; K31.7 Polyp of stomach and duodenum; K44.9 Diaphragmatic hernia without obstruction or gangrene; Z87.442 Personal history of urinary calculi; Z90.49 Acquired absence of other specified parts of digestive tract
CPT/HCPCS: 43239; 87426; 88305; 88313; 88342; 99152; 99153; C9803; J7120; J2405

== ENCOUNTER → 2021-03-18 08:25 | Day surgery (SDC) | payer OTHER, SELFPAY ==
[2021-03-18] MEDS: Lidocaine 2% Jelly 1 APPLIC Tube (08:39)
[2021-03-18 09:12] VITALS: BP 104/64; PULSE 75; RESP 16; TEMP 36.8; O2SAT 100
== END ==
PROVIDERS: PCP Family Medicine; Referring Provider Surgery; Visit Provider Surgery
PROC: F00ZJWZ Instrumental Swallowing and Oral Function Assessment using Swallowing Equipment (ICD-10-PCS; CPT 43235; principal; 2021-03-18 08:25)
DX: K21.9 Gastro-esophageal reflux disease without esophagitis (principal); Z20.828 Contact with and (suspected) exposure to other viral communicable diseases
CPT/HCPCS: 91010; 91013; 87426; C9803

== ENCOUNTER 2021-05-11 14:26 | Outpatient (CLI) | payer OTHER, SELFPAY ==
[2021-05-11 14:50] LABS: Hematocrit 34.1 % (37-47); Hemoglobin 10.9 g/dL (12.0-15.0); Mean Corpuscular Hgb 27.3 pg (27.0-32.0); Mean Corpuscular Volume 85.5 fL (81-99); Mean Platelet Vol. 10.3 fl (6.2-12.0); Platelet Count 281 K/mm3 (150-450); RBC Distribution Width CV 16.3 % (11.6-14.6); RBC Distribution Width SD 51.3 fl (35.1-43.9); Red Blood Count 3.99 M/mm3 (4.2-5.4); White Blood Count 8.4 K/mm3 (4.4-11.0)
[2021-05-11 14:51] LABS: Anion Gap 3 (5-15); BUN 9 mg/dL (7-18); BUN/Creat Ratio 11.4 RATIO (10-20); Calcium,Total 8.7 mg/dL (8.5-10.1); Chloride 106 mmol/L (98-107); Creatinine, Serum 0.79 mg/dL (0.55-1.02); EST Glomerular Filtration Rate 84 mL/min (>60); Est Glom Filt Rate - Afr Amer 102 mL/min (>60); Glucose 97 mg/dL (74-106); Potassium 3.7 mmol/L (3.5-5.1); Sodium Level 138 mmol/L (136-145)
== END 2021-05-11 23:59 | disposition home or self-care (01) ==
LOC: PAVLAB 14:27
PROVIDERS: PCP Family Medicine; Referring Provider Surgery; Visit Provider Surgery
DX: Z01.810 Encounter for preprocedural cardiovascular examination (principal)
CPT/HCPCS: 36415; 80048; 85027

== ENCOUNTER 2021-05-12 08:13 | Outpatient (CLI) | payer OTHER, SELFPAY ==
[2021-05-12 09:02] LABS: Ferritin 5 ng/mL (8-252); Iron Binding Capacity,Total 455 ug/dL (250-450)
[2021-05-13 12:27] LABS: Transferrin 358 mg/dL (192-364)
== END 2021-05-12 23:59 | disposition short-term general hospital (02) ==
PROVIDERS: PCP Family Medicine; Referring Provider Physician Assistant; Visit Provider Physician Assistant
DX: R71.0 Precipitous drop in hematocrit (principal)
CPT/HCPCS: 36415; 82274; 82728; 83550; 84466

== ENCOUNTER 2021-05-19 07:59 | Outpatient (CLI) | payer OTHER, SELFPAY ==
[2021-05-19 08:20] LABS: Absolute Lymphocyte Count 1.43 X10^3/uL (0.83-4.51); Absolute Neutrophil Count 5.3 X10^3/uL (2.0-7.7); Basophil# 0.03 X10^3/uL; Basophil% 0.4 % (0-1); Eosinophil# 0.07 X10^3/uL; Eosinophils% 0.9 % (0-5); Hematocrit 36.7 % (37-47); Hemoglobin 11.7 g/dL (12.0-15.0); Lymphocyte # 1.43 X10^3/ul (0.83-4.51); Lymphocyte % 19.3 % (19-41); Mean Corp Hgb Conc 31.9 g/dL (32-36); Mean Corpuscular Hgb 27.6 pg (27.0-32.0); Mean Corpuscular Volume 86.6 fL (81-99); Mean Platelet Vol. 10.2 fl (6.2-12.0); Monocyte# 0.54 X10^3/uL; Monocyte% 7.3 % (0-10); NRBC Flagged by Analyzer 0 % (0-5); Neutrophil # 5.31 X10^3/uL (2.7-7.7); Neutrophil % 71.7 % (47-70); Platelet Count 262 K/mm3 (150-450); RBC Distribution Width SD 52.3 fl (35.1-43.9); Red Blood Count 4.24 M/mm3 (4.2-5.4); White Blood Count 7.4 K/mm3 (4.4-11.0)
[2021-05-19 08:38] LABS: Ferritin 20 ng/mL (8-252); Iron Binding Capacity,Total 417 ug/dL (250-450)
== END 2021-05-19 23:59 | disposition home or self-care (01) ==
LOC: PAVLAB 08:00
PROVIDERS: PCP Family Medicine; Referring Provider Physician Assistant; Visit Provider Physician Assistant
DX: R71.0 Precipitous drop in hematocrit (principal)
CPT/HCPCS: 36415; 82728; 83550; 85025

== ENCOUNTER 2021-05-24 05:55 | Day surgery (SDC) | payer OTHER, SELFPAY ==
[2021-05-24] VITALS (9 sets, daily range): BP systolic 96–115; BP diastolic 62–70; PULSE 68–89; RESP 16–96; TEMP 37.2–37.5; O2SAT 96–100; BMI 21.2
--- NOTE | 2021-05-24 06:15 | PCM.HP.BLA ---
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 Is patient in pain?: No Allergies aspirin Allergy (Intermediate, Verified 05/11/21 14:06) Swelling codeine Allergy (Intermediate, Verified 05/11/21 14:06) Nausea Medications lansoprazole 30 mg capsule,delayed release 30 mg PO DAILY 06/09/20 [History Confirmed 05/11/21] spironolactone 25 mg tablet 25 mg PO BID 06/09/20 [History Confirmed 05/11/21] famotidine 40 mg tablet 40 mg PO QHS 02/16/21 [History Confirmed 05/11/21] sucralfate 1 gram tablet 1 g PO QACHS 02/16/21 [History Confirmed 05/11/21] [facility] Medical History (Updated 05/11/21 @ 17:12 by Cele IQBAL PA-C) Decreased hemoglobin GERD (gastroesophageal reflux disease) H/O renal calculi Heartburn Hx of hiatal hernia Hyperthyroidism Multiple thyroid nodules Non-smoker Wears contact lenses Wears glasses Surgical History H/O tubal ligation History of cholecystectomy History of left salpingo-oophorectomy History of salpingectomy Hx of colonoscopy Family History Mother Lymphoma Leukemia Grandfather Diabetes Esophageal cancer Social History household members: children number of children: 1 current occupational status: employed current occupation: [employer] history of recent travel: No sexually active: No Smoking Status: Never smoker alcohol intake: current alcohol intake frequency: a few times a month substance use type: does not use frequency: daily seatbelt use: always do you feel safe at home: Yes additional social history: single HPI HPI HPI: JEFF BUCHANAN, is a 45 F who presents to the office today for an update history and physical for an upcoming elective procedure. Patient denies recent hospitalizations or illnesses since her last office visit. She states she has continued to take famotidine, lansoprazole, and Carafate. She notes approximately 2 times per week she is having epigastric discomfort. She notes very intermittent vomiting. She states she has limited her diet to avoid diary and all acid producing foods. She denies previous cardiac and pulmonary history. She denies previous history of blood clots. She denies any side effects or complications from anesthesia. Her previous abdominal surgical history includes cholecystectomy and laparoscopic removal of the left ovary. Patient's previous history per Dr. Goddard: JEFF BUCHANAN, is a 45 F who presents to the office today for ongoing surgical evaluation of intractable gastroesophageal reflux disease. On February 26, 2021 she had a esophagogastroduodenoscopy with biopsy. 2 gastric polyps were identified. Reflux esophagitis identified. Pathology showed normal duodenum. Chronic gastritis. H. pylori was negative. Benign gastric fundic polyp. Chronic inflammation of the GE junction. No evidence of Rowland's. Mid esophagus was not remarkable. A contrast upper GI study was obtained on 02/23/2021. This was felt to be normal. A 12 mm tablet passed without difficulty. The patient had esophageal manometry performed on March 18, 2021. It is interpreted as 10 normal swallows. Patient takes 8 tablets a day. She has been on omeprazole for 13 years. She desperately wants to proceed with definitive surgery. JEFF BUCHANAN, is a 45 F who presents to the office today for surgical consultation regarding gastroesophageal reflux disease. The patient is referred by Dr. Virgil Browning and a written copy my surgical consult recommendations will return to him. The per patient is currently on famotidine 40 mg daily and sucralfate 1 g 4 times daily. Her medication list also suggest that she is on lansoprazole 30 mg daily the patient is concerned because she is not able to eat normal foods. She has had a previous history of a laparoscopic cholecystectomy as well as a laparoscopic oophorectomy and tubal ligation. She has had previous remote esophagogastroduodenoscopy's and a colonoscopy just earlier this year. She complains of trying to eat acidic food causing her trouble. The area also was a problem. She has been avoiding oils. She feels that she has significant reflux problems. ROS General General: No weight change, appetite, fatigue, colon cancer, breast cancer or weakness HEENT HEENT: No difficulty swallowing, eye injury, eye surgery, swollen glands or hoarseness Endo Endocrine: No thyroid disease, diabetes mellitus, thyroid cancer, Hair loss, heat intolerance or cold intolerance Skin Skin: No rash or changing moles Breast Breast: No left breast lump, right breast lump, nipple discharge, breast pain, abnormal mammogram, abnormal US or breast enlargement Musc Musculoskeletal: No back problems, arthritis, rheumatoid arthritis, gout or joint pain Cardio Cardiovascular: No murmur, pacemaker, heart disease, atrial fibrillation, high blood pressure, heart attack, heart stent, palpitations, shortness of breat with exertion or chest pain Psych Psychiatric: No depression, anxiety or hearing voices Resp Respiratory: No shortness of breath, No sleep apnea, No cough, No COPD, No asthma, No emphysema and No wheezing Gastro Gastrointestinal: No abdominal pain, No nausea or vomiting, No diarrhea, No constipation, No blood in stool, No acid reflux, No hemorrhoids, No ulcers, No gallbladder problem and No black,tarry stools Jose Hematologic: No blood thinners, No blood disorders, No bleeding, No anemia and No blood clots Neuro Neurologic: No system reviewed and no additional complaints, except as documented, No as per HPI, No abnormal gait, No abnormal hearing, No abnormal movements, No abnormal speech, No behavioral changes, No burning sensations, No confusion, No convulsions, No disequilibrium, No dizziness, No localized weakness, No frequent falls, No headache(s), No lack of coordination, No loss of vision, No memory loss, No numbness, No other visual disturbances, No radicular pain, No restless legs, No sensory deficit, No syncope, No tingling, No tremor(s), No weakness and No other Exam Const General: cooperative, healthy appearing, comfortable and no acute distress [facility] Head: normal to inspection Eyes General: appearance normal, both eyes and all related structures Neck Neck: normal visual inspection Neck mass: No Resp Effort & Inspection: normal respiratory effort Auscultation: clear to auscultation bilaterally Cardio Rate: regular rate Rhythm: regular rhythm GI Inspection: normal to inspection Palpation: soft Auscultation: normal bowel sounds Musc Cervical Spine: normal cervical lordosis Skin General: no rashes or lesions noted Neuro General: no focal motor deficits and CN's II-XI intact bilaterally Extrem General: normal to inspection Psych Appearance: grossly normal Affect: normal affect COVID (Procedure Consent) Procedure Criteria Procedure Criteria: Yes Elective The surgeon/proceduralist and patient have discussed in detail the risk of exposure to and/or potential harm posed by the COVID-19 virus with having a surgery/procedure at this time versus the risk of delaying the surgery/procedure. It is not possible to know either the risk of delaying the surgery or procedure or chance of getting an infection with perfect accuracy, but a joint decision was made between the patient and the surgeon/proceduralist to proceed at this time with the scheduled surgery/procedure as indicated on the consent form. Assessment and Plan Assessment and Plan (1) GERD (gastroesophageal reflux disease): Status: Acute Qualifiers: Esophagitis presence: esophagitis presence not specified Qualified Code(s): K21.9 - Gastro-esophageal reflux disease without esophagitis Plan - Cele IQBAL PADreaC: Dr. Goddard will plan to perform a laparoscopic toupet hiatal hernia repair. Procedure details, risks and benefits have been reviewed. Patient and her significant other have had the opportunity to ask and have questions answered. Patient verbally understands and agrees with the plan. Post-operative instructions were thoroughly discussed with the patient and her significant other. Patient will proceed to the lab to obtain her pre-op lab work today. Plan Details Other Orders: Orders: Iron Binding Capacity,Total Today R71.0 Stool Occult Blood iFOB 05/11/21 R71.0 As of May 19, 2021 white blood cell count was 7.4 with a hemoglobin now improved to 11.7 and hematocrit 36.7 with a platelet count of 262,000. Total iron binding capacity 417. Ferritin level twenty. Both of these are normal currently. The patient's had an opportunity ask no questions answered. She would like to proceed as noted. Andrew Goddard M.D., F.A.C.S.
--- NOTE | 2021-05-24 06:27 | PCM.DC ---
Discharge Instructions Activity Discharge Activity: May Not Drive (for 3-5 days or while taking narcotic pain medicine.) May shower in (days): 1 Lifting Restrictions: 10 pounds Dressing / Incision Call your doctor if your incision/area has: Continuous Slow Oozing, Sudden Increased Bleeding, Increased Pain/ Swelling, Increased Redness and Foul Smelling Discharge Call your doctor if you observe: Fever of 101 or Higher Suture Line Care: Avoid Pulling/Pushing and Avoid Pinching/Bending Additional Dressing/Incision Instructions:: Change or remove dressing in 4 days. Leave steri-strips in place for 1 week. Follow Up Care Please Follow Up With: nAdrew Goddard MD When: Call [phone] to make an appointment to be seen in about 10 days. Test Results: Please follow the dietary and activity instructions previously provided in the written documentations. Discharge Plan Admission Primary Reason for Your Visit: Intractable gastroesophageal reflux disease with hiatal hernia Attending Provider: Andrew Goddard Primary Care Provider: Virgil Browning Discharge Orders/Prescriptions Prescriptions: New ondansetron HCl 4 mg tablet 4 mg PO Q8H Qty: 10 RF: 0 Continued lansoprazole 30 mg capsule,delayed release(DR/EC) 30 mg PO DAILY RF: 0 spironolactone 25 mg tablet 25 mg PO BID RF: 0 sucralfate [Carafate] 1 gram tablet 1 g PO QACHS RF: 0 famotidine 40 mg tablet 40 mg PO QHS RF: 0 ascorbic acid (vitamin C) [Vitamin C] 500 mg Tablet 500 mg PO DAILY RF: 0 ferrous sulfate [Iron (ferrous sulfate)] 325 mg (65 mg iron) Tablet 325 mg PO BID RF: 0 Referrals / Follow Up: Virgil Browning MD [Primary Care Provider] - Disposition Disposition (needs filled in before D/C Order can be placed): Home, Self Care
[2021-05-24] MEDS: Lactated Ringers 1,000 ML 15 ML IV (06:39)
[2021-05-24] MEDS: Cefazolin 2 GM in 0.9% Normal Saline 100 ML IV (07:23)
[2021-05-24] MEDS: Lactated Ringers 1,000 ML 50 ML IV (09:16)
[2021-05-24] MEDS: Lidocaine 1% (30 ml sdv) 30 ML Vial (10:00)
[2021-05-24] MEDS: Bupivacaine Mpf 0.5% 30 ML VIAL (10:00)
--- NOTE | 2021-05-24 10:10 | OP.PCM_ITS ---
Problems Associated Problem List Diagnoses (1) GERD (gastroesophageal reflux disease): Report of Operation Date of Procedure: 05/24/21 Pre-Operative Diagnosis: iNTRACTABLE GASTROESOPHAGEAL REFLUX DISEASE Post-Operative Diagnosis: Intractable gastroesophageal reflux disease with hiatal hernia Surgery/Procedure Performed:: Laparoscopic repair of hiatal hernia with laparoscopic toupet reflux procedure Description of Surgical Findings:: Timeout informed consent was obtained. 45-year-old female was taken to the operating room she was initially placed supine on table underwent general endotracheal ovation esthesia Ancef 2 g were given intravenously she was then placed in the low lithotomy position she was on a beanbag. Buttock padding was placed with a rolled up blanket to help secure the patient. Arms were carefully padded. The abdomen was then prepped and draped. Ioban draping was used. 1% lidocaine mixed 50-50 with 0.5% Marcaine was used as a local anesthetic. Local was instilled superior right upper quadrant adjacent to the umbilicus and using a 5 mm direct access port I visualized got access and insufflated the abdomen CO2 to a pressure of 10 mmHg pressure. Then placed a 10 mm scope in the left upper quadrant 2 more 5 endoscopes in the left subcostal area. I placed a [place] retractor through a 5 mm port site in the epigastric area. Left lobe of the liver was elevated. Inspection revealed a small healer hernia at the greater curve of stomach was densely adherent to the spleen. Vagal fibers to the gallbladder identified and preserved as Harmonic Scalpel was used to transect tissue identify the right mo of the diaphragm, epiphrenic ligament carefully dissecting free the anterior surface of the esophagus. And approached via the left mo. There identified this I transected the short gastrics of the superior aspect of the stomach. These were quite adherent posteriorly into the stomach and great care was taken as I did blunt dissection carefully elevated tissue and transected it with harmonic scalpel. Complete hemostasis was intact. Course of the pancreas was identified and carefully preserved. There were adhesions of the stomach po steriorly that had to be bluntly and then harmonic scalpel transected free to allow for mobility of the greater curvature. Got into the space of the posterior fat pad dissected that free. Then was able to place 1/2 inch tenderness around the EG junction and that was used to elevate the esophagus and I could work circumferentially around the esophagus taking care to preserve the posterior vagus nerve. I have read 4 to 6 cm of the distal esophagus within the mediastinum circumferentially. Absolutely no injury to pleura. Having achieved that plan I approximated the diaphragm with simple sutures of 0 Nurolon in pledgets of Dacron. A 45 mm bougie was placed demonstrated good approximation. Then I performed a toupet procedure wrapping the fundus of the stomach around the backside of the esophagus. Secured the posterior aspect of the right to the right. Diaphragm did not with 0 Nurolon. I then performed very right portion of the wrap of the esophagus to the epiphrenic ligament to the right portion of the stomach and in a running fashion using 2-0 Ethibond performed a 3 cm long wrap. I then gauge the tension on the left aspect of the esophagus and stomach then performed that portion of the posterior wrap began using 2-0 Ethibond securing the stomach to the esophagus into the epiphrenic ligament. A 270 degree wrap was achieved. A running suture of the 2 Ethibond was performed to the stomach and esophagus. This was performed for 3-1/2 cm. Excellent position was felt in the sheath. I then performed an upper endoscopy with detailed note him the provation system but the wrap appeared to be in place. There was no evidence of any air leak. Excess fluid nurse aspirated free. An OG tube was placed in the stomach. A subcostal block was performed using the local under laparoscopic visualization. The 10 mm port site was generously anesthetized. A grainy needle was used to place a simple suture of 0 Vicryl at the 10 mm port site. Trochars were then decompressed with the antiviral valve. Skin edges approximated opted for Monocryl subdermal stitches. Steri-Strips Telfa OpSite dressings applied. Sponge and instrument and needle counts were reported to the surgeon to be correct. Specimens none. Drains none. Blood loss very minimal at less than 5 cc. The patient was taken to the recovery room in satisfactory addition without apparent complication Andrew Goddard M.D., F.A.C.S. Surgeon: Andrew Goddard Type of Anesthesia: General and Local Anesthesiologist: Suly Tomlinson
--- NOTE | 2021-05-24 10:36 | OP.EGD_ITS ---
Patient Name: Lucretia Reyes Procedure Date: 05/24/2021 8:31 AM Date of : 1975 Age: 45 Procedure: Upper GI endoscopy Indications: Intraoperative evaluation of fundoplication formation during anatomic reconstruction foregut surgery Providers: Andrew Goddard MD Medicines: General Anesthesia Complications: No immediate complications. Procedure: Pre-Anesthesia Assessment: - Prior to the procedure, a History and Physical was performed, and patient medications and allergies were reviewed. The patient's tolerance of previous anesthesia was also reviewed. The risks and benefits of the procedure and the sedation options and risks were discussed with the patient. All questions were answered, and informed consent was obtained. Prior Anticoagulants: The patient has taken no previous anticoagulant or antiplatelet agents. ASA Grade Assessment: II - A patient with mild systemic disease. After reviewing the risks and benefits, the patient was deemed in satisfactory condition to undergo the procedure. After obtaining informed consent, the endoscope was passed under direct vision. Throughout the procedure, the patient's blood pressure, pulse, and oxygen saturations were monitored continuously. The Endoscope was introduced through the mouth, and advanced to the second part of duodenum. The upper GI endoscopy was accomplished without difficulty. The patient tolerated the procedure well. Scope In: 9:52:10 AM Scope Out: 9:57:16 AM Total Procedure Duration Time 0 hours 5 minutes 6 seconds Findings: The examined esophagus was normal. Evidence of a Toupet fundoplication was found in the gastric fundus. The wrap appeared intact. This was traversed. The examined duodenum was normal. Impression: - Normal esophagus. - A Toupet fundoplication was found. The wrap appears intact. - Normal examined duodenum. - No specimens collected. Recommendation: - Discharge patient to home. - Clear liquid diet. - Continue present medications. - Return to my office in 10 days. Procedure Code(s): --- Professional --- 44584, Esophagogastroduodenoscopy, flexible, transoral; diagnostic, including collection of specimen(s) by brushing or washing, when performed (separate procedure) CPT copyright 2017 [employer]. All rights reserved. The codes documented in this report are preliminary and upon medical biller coder review may be revised to meet current compliance requirements. Andrew Goddard MD 05/24/2021 10:35:44 AM This report has been signed electronically. Number of Addenda: 0 Note Initiated On: 05/24/2021 8:31 AM
== END 2021-05-24 23:59 | disposition home or self-care (01) ==
LOC: SDC 05:56 → AC 05:57
PROVIDERS: PCP Family Medicine; Referring Provider Surgery; Visit Provider Surgery
PROC: (CPT 43325; principal; 2021-05-24 07:10)
DX: K44.9 Diaphragmatic hernia without obstruction or gangrene (principal); K21.9 Gastro-esophageal reflux disease without esophagitis; E05.90 Thyrotoxicosis, unspecified without thyrotoxic crisis or storm; Z87.442 Personal history of urinary calculi; Z90.49 Acquired absence of other specified parts of digestive tract; Z79.899 Other long term (current) drug therapy
CPT/HCPCS: 43281; 00790; 43235; 87426; C9803; J7120; J2405

== ENCOUNTER 2021-06-08 07:46 | Outpatient (CLI) | payer OTHER, SELFPAY ==
--- NOTE | 2021-06-08 07:47 | US_ITS ---
STUDY: THYROID ULTRASOUND REASON FOR EXAM: Female, 45 years old. Thyroid nodule, hyperthyroidism TECHNIQUE: Ultrasound evaluation of the thyroid was performed with real-time and static helms-scale imaging. COMPARISON: None. FINDINGS: RIGHT LOBE: The right lobe of the thyroid gland measures 4.5 cm x 1.2 cm x 1 cm. There is a homogeneous echotexture. There are no demonstrated solid, cystic or complex lesions. Increased vascularity. LEFT LOBE: The left lobe of the thyroid gland measures 4.3 cm x 0.8 cm x 1.1 cm. There is a homogeneous echotexture. There are no demonstrated solid, cystic or complex lesions. Increased vascularity. ISTHMUS: The isthmus measures 3 mm. The regional lymph nodes are normal. US/Thyroid IMPRESSION: No focal abnormality is seen. Increased vascularity of both lobes of thyroid gland. Electronically Signed: Lalit Fritz MD at 13:36 EST ,
== END 2021-06-08 23:59 | disposition home or self-care (01) ==
LOC: US 07:46
PROVIDERS: PCP Family Medicine; Referring Provider Surgery; Visit Provider Surgery
DX: E05.90 Thyrotoxicosis, unspecified without thyrotoxic crisis or storm (principal); E04.1 Nontoxic single thyroid nodule
CPT/HCPCS: 76536

== ENCOUNTER 2021-06-29 07:57 | Outpatient (CLI) | payer OTHER, SELFPAY ==
[2021-06-29 08:20] LABS: Absolute Neutrophil Count 5.4 X10^3/uL (2.0-7.7); Basophil# 0.03 X10^3/uL; Basophil% 0.4 % (0-1); Eosinophil# 0.12 X10^3/uL; Eosinophils% 1.6 % (0-5); Hematocrit 41.3 % (37-47); Hemoglobin 13.8 g/dL (12.0-15.0); Lymphocyte % 20.9 % (19-41); Mean Corp Hgb Conc 33.4 g/dL (32-36); Mean Corpuscular Hgb 30.9 pg (27.0-32.0); Mean Corpuscular Volume 92.4 fL (81-99); Mean Platelet Vol. 10.7 fl (6.2-12.0); Monocyte# 0.44 X10^3/uL; Monocyte% 5.8 % (0-10); NRBC Flagged by Analyzer 0 % (0-5); Neutrophil # 5.42 X10^3/uL (2.7-7.7); Neutrophil % 70.8 % (47-70); Platelet Count 218 K/mm3 (150-450); RBC Distribution Width CV 16.6 % (11.6-14.6); RBC Distribution Width SD 56.8 fl (35.1-43.9); Red Blood Count 4.47 M/mm3 (4.2-5.4); White Blood Count 7.7 K/mm3 (4.4-11.0)
[2021-06-29 08:37] LABS: Anion Gap 3 (5-15); BUN 12 mg/dL (7-18); BUN/Creat Ratio 13.4 RATIO (10-20); Calcium,Total 9.1 mg/dL (8.5-10.1); Chloride 107 mmol/L (98-107); EST Glomerular Filtration Rate 73 mL/min (>60); Est Glom Filt Rate - Afr Amer 88 mL/min (>60); Ferritin 34 ng/mL (8-252); Glucose 101 mg/dL (74-106); Potassium 4.2 mmol/L (3.5-5.1); Sodium Level 140 mmol/L (136-145); Thyroid Stim Hormone (TSH) 3.07 uIU/mL (0.358-3.74)
[2021-06-30 17:22] LABS: Thyroid Peroxidase AB 9 IU/mL (0-34)
== END 2021-06-29 23:59 | disposition home or self-care (01) ==
LOC: PAVLAB 07:59
PROVIDERS: PCP Family Medicine; Referring Provider Family Medicine; Visit Provider Family Medicine
DX: D50.9 Iron deficiency anemia, unspecified (principal); E04.2 Nontoxic multinodular goiter
CPT/HCPCS: 36415; 80048; 82728; 84443; 85025; 86376